=== PATIENT | female | born 1955 | race Hispanic/Latino ===

== ENCOUNTER 2021-02-14 11:46 | Emergency (ER) | payer MEDICARE, SELFPAY ==
[2021-02-14 12:00] VITALS: BP 154/86; PULSE 89; RESP 16; TEMP 36.8; O2SAT 98
--- NOTE | 2021-02-14 12:07 | ED.URI ---
HPI - URI/Sore Throat General Chief Complaint: Upper Respiratory Infection Stated Complaint: Wants Covid Test Time Seen by Provider: 02/14/21 12:07 Source: patient and RN notes reviewed History of Present Illness HPI Narrative: Patient is a 66-year-old female who presents the urgent care with request for a Covid test . Patient states that her granddaughter was diagnosed yesterday with Covid and she was around her granddaughter last Saturday. Patient states that she has had a headache off and on for the last 2 days with a slight runny nose. Otherwise patient does not have any upper respiratory symptoms, cough, shortness of breath, fever, nausea, vomiting. Patient has not taken anything for her headache [id number] and currently denies of any headache. No other acute complaints. No acute distress noted. Patient aware of the plan of care. Some parts of this dictation were generated by voice recognition software and may contain typographical and/or grammatical inaccuracies. Related Data Home Medications Medication Instructions Recorded Confirmed atorvastatin 40 mg PO DAILY 02/14/21 02/14/21 enalapril maleate 20 mg PO DAILY 02/14/21 02/14/21 Allergies Allergy/AdvReac Type Severity Reaction Status Date / Time No Known Allergies Allergy Verified 02/14/21 12:14 Review of Systems Review of Systems: Narrative: CONSTITUTIONAL: Denies fever, chills, or sweats. EYES: Denies visual changes, redness, or discharge. ENT: Denies congestion, sore throat, or otalgia. Reports of rhinorrhea CARDIOVASCULAR: Denies chest pain, palpitations, or edema. RESPIRATORY: Denies cough or dyspnea. GASTROINTESTINAL: Denies abdominal pain, nausea, vomiting, or diarrhea. GENITOURINARY: Denies dysuria or hematuria. SKIN: Denies rash or itching. MUSCULOSKELETAL: Denies back pain, joint pain, or myalgia. NEUROLOGIC: Denies headache, numbness, or weakness. All other systems reviewed are negative, except as documented in HPI. PMFSH Comments At the time of my signature, I reviewed and agree with the nursing past medical, surgical, social, and family history. There is no relevant family history pertinent to the patient complaint. Exam Narrative: Exam Narrative: GENERAL: This is a well-nourished, well-developed patient, in no apparent distress. HEAD: normocephalic, atraumatic. EYES: PERRL. Sclera clear/white. Vision is grossly intact. EARS: External ears normal, auditory canals clear and without drainage, TMs normal without perforation. Hearing grossly intact. NOSE: External nose normal with no obvious nasal discharge, nares without redness,clear rhinorrhea. THROAT: Mucous membranes moist, posterior pharynx clear. NECK: Neck supple, non-tender without lymphadenopathy, masses or thyromegaly. CARDIOVASCULAR: Regular rate and rhythm without murmurs, gallops, or rubs. RESPIRATORY: Clear to auscultation. Breath sounds equal bilaterally. No wheezes, rales, or rhonchi. SKIN: warm, intact with no suspicious lesions or rash, good texture and turgor. NEURO: awake, alert, and oriented to person, place and time. There were no obvious focal neurologic abnormalities. EXTREMITIES: No clubbing, cyanosis, or edema. Course Vital Signs Vital signs: Vital Signs Temperature 98.2 F 02/14/21 12:00 Pulse Rate 89 02/14/21 12:00 Respiratory Rate 16 02/14/21 12:00 Blood Pressure 154/86 H 02/14/21 12:00 Pulse Oximetry 98 02/14/21 12:00 Temperature 98.2 F 02/14/21 12:15 Pulse Rate 89 02/14/21 12:15 Respiratory Rate 16 02/14/21 12:15 Blood Pressure 154/86 H 02/14/21 12:15 Pulse Oximetry 98 02/14/21 12:15 Reviewed-patient is informed that they may have pre-hypertension or hypertension based on a blood pressure reading in the department. I recommend the patient call the primary care provider listed on their discharge instructions or a physician of their choice this week to arrange follow-up for further evaluation of possible pre-hyperte
[2021-02-14 12:15] VITALS: BP 154/86; PULSE 89; RESP 16; TEMP 36.8; O2SAT 98
[2021-02-15 21:08] LABS: SARS-CoV-2 RNA PCR Negative
== END 2021-02-14 12:22 | disposition home or self-care (01) ==
PROVIDERS: Emergency Provider Nurse Practitioner Family; PCP Internal Medicine
DX: Z20.822 Contact with and (suspected) exposure to COVID-19 (principal); E78.00 Pure hypercholesterolemia, unspecified; I10 Essential (primary) hypertension
CPT/HCPCS: 99213; C9803; G0463; U0003; U0005